=== PATIENT | female | born 1975 | race Caucasian/White ===

== ENCOUNTER → 2016-09-03 | Outpatient (CLI) | payer OTHER ==
[~2016-09-03] VITALS: Ht 158.8 cm; Wt 49.0 kg
[~2016-09-03] MED LIST: ALPRAZOLAM0.25 M2 PO; BENADRYL25 MG PO; BUSPAR15 MG PO; MEDROL DOSEPAK4 MG PO; OMEPRAZOLE40 M1 PO; PROAIR HFA8.5 GM IH; TUMS500 MG PO
== END | disposition home or self-care (01) ==
LOC: AMB 07:54
PROC: 0DB68ZX Excision of Stomach, Via Natural or Artificial Opening Endoscopic, Diagnostic (ICD-10-PCS; principal; 2016-09-03)
DX: K29.50 Unspecified chronic gastritis without bleeding (principal); B96.81 Helicobacter pylori [H. pylori] as the cause of diseases classified elsewhere; K21.0 Gastro-esophageal reflux disease with esophagitis; I10 Essential (primary) hypertension; F41.0 Panic disorder [episodic paroxysmal anxiety]; F17.210 Nicotine dependence, cigarettes, uncomplicated; Z82.61 Family history of arthritis; Z82.49 Family history of ischemic heart disease and other diseases of the circulatory system; Z80.3 Family history of malignant neoplasm of breast
CPT/HCPCS: 88305; 88342 TC; J2250; J3010